=== PATIENT | female | born 2000 | race Caucasian/White ===

== ENCOUNTER → 2025-03-01 14:05 | Outpatient (CLI) | payer OTHER, SELFPAY ==
--- NOTE | 2025-03-01 14:13 | DI.ECHO.S_ITS ---
[facility] : : [address] : : [place] : : [id number] : : Phone: [phone] Echocardiogram Report + + :Name: MARY MARQUEZ Study Date: 03/01/2025 Height: 67 in : :[facility] ReadingLocation: Weight: 189 lb : : Gender: Female BSA: 2.0 m2 : :: 2000 Age: 24 yrs BP: 122/86 mmHg: :Reason For Study: DIZZINESS : :Ordering Physician: JEREL, : :THOM Garcia Performed By: Brad Wyman : :Referring: THOM BELTRÁN : + + Interpretation Summary 1) Normal left ventricular thickness, size, wall motion, and systolic function (EF 60-65%). 2) Normal right ventricular size and function. 3) No significant valvular abnormalities. 4) No prior Echo available for comparison. Procedure: The study quality was technically good. A two-dimensional transthoracic echocardiogram with color flow and Doppler was performed in limited views only. There is no prior echocardiogram noted for this patient. The patient was in normal sinus rhythm during the exam. Left Ventricle: The left ventricle is normal in size. There is normal left ventricular wall thickness. There is no ventricular septal defect visualized. The ejection fraction is estimated to be 60-65%. There are no focal wall motion abnormalities. Diastolic parameters suggest probable normal left ventricular diastolic function and normal filling pressures. Right Ventricle: The right ventricle is normal in size and function. Atria: The left atrial size is normal. Right atrial size is normal. There is no Doppler evidence for an interatrial shunt. Mitral Valve: The mitral valve leaflets appear normal. There is no evidence of stenosis, fluttering, or prolapse. There is no mitral regurgitation noted. Aortic Valve: The aortic valve is trileaflet. The aortic valve opens well. No aortic regurgitation is present. Tricuspid Valve: The tricuspid valve leaflets are thin and pliable. No tricuspid regurgitation. Pulmonic Valve: The pulmonic valve is not well seen, but is grossly normal. There is no pulmonic valvular regurgitation. Great Vessels: The aortic root is normal size. The ascending aorta could not be visualized. The pulmonary artery is normal size. The IVC is of normal diameter and collapses greater than 50% with a sniff. This suggests a low right atrial pressure of 3 mm Hg. Pericardium/ Pleura There is no pericardial effusion. There is no pleural effusion. MMode/2D Measurements & Calculations LVIDd: 4.7 cm LVOT diam: 1.9 cm LVIDs: 3.0 cm Ao root diam: 2.8 cm FS: 35.9 % Ao Arch Diam (Prox Trans): 1.6 cm EPSS: 0.81 cm IVSd: 0.74 cm LVPWd: 0.82 cm LV roth. diameter/BSA (cm/m^2): 2.4 LV sys. diameter/BSA (cm/m^2): 1.5 LA A2 area: 14.6 cm2 RA long axis: 4.0 cm LA A4 area: 16.0 cm2 RA area: 12.6 cm2 LA length (vol): 4.6 cm RA vol: 33.4 ml LA vol: 43.1 ml RA : 16.9 ml/m2 LA vol index: 21.8 ml/m2 IVC diam: 1.6 cm RVD1 (basal): 3.4 cm RVD2 (mid): 3.1 cm TAPSE: 2.6 cm Doppler Measurements & Calculations Ao V2 max: 137.8 cm/sec MV E max angel: 84.7 cm/sec Ao V2 mean: 101.0 cm/sec MV A max angel: 40.3 cm/sec Ao max P.6 mmHg MV E/A: 2.1 Ao mean P.4 mmHg Med Peak E' Angel: 12.0 cm/sec Ao V2 VTI: 31.5 cm E/E' med: 7.1 Lat Peak E' Angel: 19.1 cm/sec E/E' lat: 4.4 E/e' average: 5.8 MV dec time: 0.15 sec PA V2 max: 111.0 cm/sec PA V2 mean: 80.4 cm/sec PA mean P.9 mmHg PA pr(Accel): 25.9 mmHg Reading Physician:[id number] PM
--- NOTE | 2025-03-01 14:13 | DI.NM.S_ITS ---
PROCEDURE: NM EXERCISE TREADMILL NON NUC COMPARISON: None. INDICATIONS: Dizziness FINDINGS: The patient exercised for 9 minutes and 0 seconds reaching 98% of maximum predicted heart rate. Appropriate BP response to exercise. No angina, no diagnostic ST changes, and no ectopy during exercise or recovery. Study stopped due to fatigue and lightheadedness that resolved quickly during recovery. IMPRESSION: Low risk, normal treadmill ECG only stress from inducible ischemia standpoint. Mildly reduced exercise tolerance (LIVE +14%). Study stopped due to fatigue and lightheadedness that resolved quickly during recovery. Dictated by: Saurabh Frey MD on 03/02/2025 at 15:46 Approved by: Saurabh Frey MD on 03/02/2025 at 15:48
== END ==
LOC: NUCM 14:10
PROVIDERS: PCP Nurse Practitioner Family; Referring Provider Nurse Practitioner Family; Visit Provider Nurse Practitioner Family
DX: R42 Dizziness and giddiness (principal)
CPT/HCPCS: 93017; 93306